=== PATIENT | female | born 1990 ===

== ENCOUNTER 2019-10-02 08:00 | Inpatient (IN) | payer OTHER ==
[~2019-10-02] VITALS: Ht 162.6 cm; Wt 4.1 kg
[2019-10-02] MEDS ORDERED: PRENATAL PO (09:53)
[2019-10-08] MEDS ORDERED: ATABEX OB TABL1 EACH PO (09:07)
== END 2019-10-10 11:08 | DRG 785 ==
LOC: OB/GYN 10-08 06:30 → O/R 10-08 06:30 → OB/GYN 10-08 07:00
PROVIDERS: ADMIT Obstetrics & Gynecology
PROC: 0UB70ZZ Excision of Bilateral Fallopian Tubes, Open Approach (ICD-10-PCS; 2019-10-08)
PROC: 4A1HXCZ Monitoring of Products of Conception, Cardiac Rate, External Approach (ICD-10-PCS; 2019-10-08)
PROC: 10D00Z1 Extraction of Products of Conception, Low, Open Approach (ICD-10-PCS; principal; 2019-10-08 07:00)
DX: O34.211 Maternal care for low transverse scar from previous cesarean delivery (principal); O36.63X1 Maternal care for excessive fetal growth, third trimester, fetus 1; O82 Encounter for cesarean delivery without indication; Z30.2 Encounter for sterilization; Z3A.39 39 weeks gestation of pregnancy; Z22.330 Carrier of Group B streptococcus; Z37.0 Single live birth